=== PATIENT | male | born 1965 | race African-American/Black ===

== ENCOUNTER 2018-12-25 18:49 | Emergency (ER) | payer OTHER, SELFPAY ==
[2018-12-25] MEDS ORDERED: Acetaminophen 500 MG TAB ONE (19:14)
[2018-12-25] MEDS ORDERED: Ondansetron PF 4 MG/2 ML Vial ONE (19:14)
[2018-12-25 19:39] LABS: Hemoglobin 14.1 g/dL (14.0-18.0); Mean Corpuscular HGB CONC 32.4 g/dL (32.0-36.0); Mean Corpuscular Hemoglobin 30.6 pg (27.0-31.0); Mean Corpuscular Volume 94.3 fL (78.0-98.0); Mean Platelet Volume 13.8 fL (7.4-10.4); Platelet Count 180 thou/uL (130-400); RBC Distribution Width 12.7 % (11.5-14.5); Red Blood Cell (RBC) Count 4.63 mill/uL (4.70-6.10)
[2018-12-25 19:57] LABS: ALT (SGPT) 32 U/L (8-55); AST (SGOT) 30 U/L (5-34); Albumin 4.6 g/dL (3.5-5.0); Alkaline Phosphatase 53 U/L (40-150); Anion Gap 15 mmol/L (10-20); BUN (Urea Nitrogen) 15 mg/dL (8.4-25.7); Bilirubin, Total 0.5 mg/dL (0.2-1.2); CK (CPK) 365 U/L (30-200); Calc. Creatinine Clearance 0 mL/min (70-130); Calcium 10.2 mg/dL (7.8-10.44); Carbon Dioxide 24 mmol/L (22-29); Chloride 104 mmol/L (98-107); Estimated GFR-MDRD 70; Globulin 3.9 g/dL (2.4-3.5); Glucose 94 mg/dL (70-105); Lipase 9 U/L (8-78); Potassium 4.2 mmol/L (3.5-5.1); Protein, Total 8.5 g/dL (6.0-8.3); Sodium 139 mmol/L (136-145)
[2018-12-25 20:03] LABS: Band 1 % (5-11); Eosinophils 1 % (0-10); Large Platelets SLIGHT; Lymphocytes 6 % (21-51); MDiff Complete? YES; Monocytes 12 % (0-10); Neutrophil 78 % (42-75); Platelet Morphology Comment Appears Adequate; RBC Morphology Normal
--- NOTE | 2018-12-25 20:10 | RAD ---
CHEST ONE VIEW 12/25/18 HISTORY: Fever. COMPARISON: None. FINDINGS: Lungs are clear. No pneumothorax or effusion. The cardiac silhouette and mediastinal contours are wit hin normal limits. IMPRESSION: No acute intrathoracic abnormality. POS: [facility]
== END 2018-12-25 20:36 | disposition home or self-care (01) ==
LOC: SCSER 18:49
DX: J10.1 Influenza due to other identified influenza virus with other respiratory manifestations (principal); E78.5 Hyperlipidemia, unspecified; K21.9 Gastro-esophageal reflux disease without esophagitis
CPT/HCPCS: 71045; 80053; 82550; 83605; 83690; 84484; 85025; 87040; 87804; 93005; 96361; 96374; J2405

== ENCOUNTER 2019-08-19 13:49 | Outpatient (CLI) | payer OTHER ==
[2019-08-19] MEDS ORDERED: Iopamidol-370 76% 500 ML 1 ML ONE (14:22)
--- NOTE | 2019-08-19 15:33 | CT ---
CT ABDOMEN AND PELVIS WITH IV CONTRAST: 08/19/19 HISTORY: Microscopic hematuria. FINDINGS: The lung bases are clear. No calcified gallstones are seen. The liver, spleen, pancreas, and adrenal glands are normal. NO calculi seen in the kidneys, ureters or urinary bladder. Postcontrast images demonstrate normal co ntrast excretion of the pelvicalyceal systems, ureters and the urinary bladder. There is a 7 mm low d ense lesion in the right renal cortex and an 11 mm low dense lesion in the left renal cortex. These l ikely represent cysts. No free air, free fluid or lymphadenopathy seen in the abdomen or pelvis. The prostate is enlarged. A normal appearing appendix is seen. There is a small fat containing umbilical hernia. A few colonic d iverticula are noted. There are vascular calcifications without evidence of aneurysmal dilatation of the abdominal aorta. T here are degenerative changes in the lower lumbar spine most prominent at L4-5 level. IMPRESSION: 1. No CT evidence of urinary tract calculi or obstruction. 2. Probable small renal cysts. Renal ultrasound is recommended. 3. Prostatic enlargement. 4. Colonic diverticulosis. POS: [facility]
== END 2019-08-19 13:50 | disposition home or self-care (01) ==
LOC: BICCT 13:49
PROVIDERS: ATTEND Family Medicine
DX: R31.29 Other microscopic hematuria (principal); N40.0 Benign prostatic hyperplasia without lower urinary tract symptoms; K57.30 Diverticulosis of large intestine without perforation or abscess without bleeding
CPT/HCPCS: 74177; Q9967

== ENCOUNTER 2019-09-02 14:32 | Outpatient (CLI) | payer OTHER ==
--- NOTE | 2019-09-02 15:18 | ULT ---
Bilateral renal ultrasound CLINICAL INDICATION: Renal cyst. Prior CT examination recommended follow-up ultrasound for evaluation of cystic lesions in each kidney COMPARISON: CT abdomen on 08/19/2019 FINDINGS: Right kidney: Previously seen subcentimeter hypodense lesion in the superior pole right kidney is not evident on the ultrasound exam. No obvious cystic or solid renal lesion is seen involving right kidney. There is no hydronephrosis or renal calculus.The right kidney measures 11 cm x 4.9 cm. Left kidney: Small anechoic cystic structure is seen at the junction of the midportion superior pole left kidney measuring 1.1 cm which demonstrates sonographic characteristics most compatible with a cyst. This corresponds to the CT scan abnormality. No renal calculus or hydronephrosis is seen on the left. The left kidney measures 12.1 cm x 4.2 cm. Urinary bladder: Within normal limits for degree of distention. Prostate gland is mildly prominent but measures less than 5 cm in transverse dimension. IMPRESSION: 1. Small left renal cyst. 2. The subcentimeter hypodense lesion seen in the right kidney on recent CT scan of the abdomen is no t seen on sonographic evaluation. 3. No evidence of hydronephrosis.
== END 2019-09-02 14:33 | disposition home or self-care (01) ==
LOC: BICULT 14:32
PROVIDERS: ATTEND Family Medicine
DX: N28.1 Cyst of kidney, acquired (principal); N28.9 Disorder of kidney and ureter, unspecified
CPT/HCPCS: 76770